=== PATIENT | female | born 1935 | race Caucasian/White ===

== ENCOUNTER 2016-05-09 03:04 | Inpatient (IN) | payer OTHER, MEDICARE ==
[~2016-05-09] VITALS: Ht 152.4 cm; Wt 95.3 kg
[~2016-05-09 03:04] MED LIST: AMOXICILLIN500 M2 PO; ASPIRIN EC325 M2 PO; COLACE100 M1 PO; COMBIGAN EYE DRO5 ML OP; DILAUDID2 M1 PO; LUMIGAN2.5 ML OPH; MIRALAX17 G1 PO; NORVASC10 M1 PO; PATADAY2.5 ML OP; PRED FORTE1 ML OD; RED YEAST RICE600 MG PO; TENORMIN50 M1 PO; TRICOR145 M1 PO; ULTRAM50 M1 PO; VALTREX500 M1 PO
[2016-05-09] MEDS ORDERED: TENORMIN50 M1 PO (11:53)
[2016-05-09] MEDS ORDERED: PATADAY2.5 ML OU (11:54)
[2016-05-09] MEDS ORDERED: COMBIGAN EYE DRO5 ML OD (11:55)
[2016-05-09] MEDS ORDERED: LUMIGAN2.5 ML OU (11:56)
--- NOTE | 2016-05-09 11:56 | Admission Core Measures ---
Admission Meds I reviewed the following Meds: Current Medications Sig/Aren Start time Last Medication Dose Stop Time Status Admin Acetaminophen 975 MG ONCE 05/09 0000 NR (Tylenol) 05/09 2358 Cefazolin Sodium 2,000 MG ONCE 05/09 NR (Kefzol-Ancef Inj) 05/09 2358 Oxycodone HCl 10 MG ONCE 05/09 0000 NR (Roxicodone) 05/09 2358 Acute Coronary Syndrome Inclusion Criteria ACS Diagnosis No Inpatient Core Measures LDL Reminder: If No, please order W/I first 24hr of stay Congestive Heart Failure Inclusion Criteria CHF Diagnosis No Cerebrovascular accident Inclusion Criteria CVA/TIA Diagnosis No Inpatient Core Measures Bedside Swallow Eval Reminder: If BSE failed, place ST order Antithrombotic Reminder: Order Antithrombotic Medication by end of day 2 Antithrombotic Reminder: Document Reason Antithrombotic Not ordered by end of day 2 AFIB/Flutter Reminder: If Present, add to problem list AFIB/Flutter Reminder: Order Anticoag Medication for pts with AFIB/Flutter Atherosclerosis Reminder: If Present, add to problem list LDL Reminder: If No, please order W/I first 24hr of stay PT Order Reminder: If No, please order Venous thromboembolism Inpatient Core Measures VTE Risk Factors: Age > 40, Obesity, Surgery VTE Prophylaxis Ordered Inpt Mech & Pharm No Mech VTE prophylaxis d/t No contraindications No VTE Pharm Prophylaxis d/t No contraindications Inclusion Criteria - Per Current guidelines, there needs to be overlap - treatment for the first 5 days of Warfarin therapy. - Parenteral Anticoagulation (IV or SC) needs to be - given along with Warfarin therapy. VTE Diagnosis No VTE Type NONE VTE Confirmed by (Test) NONE Problem List As ranked by this Provider includes Assessment & Plan 1. Status post total hip replacement, left HOME MEDS Home Med List Amlodipine Besylate (Norvasc) 10 MG TABLET 1 TAB PO DAILY BP/HEART (Reported) Aspirin (Ecotrin*) 81 MG TABLET.DR 1 TAB PO DAILY HEART/BLOOD (Reported) Atenolol (Tenormin) 50 MG TABLET 1 TAB PO DAILY BP (Reported) Docusate Sodium (Colace) 100 MG CAPSULE 1 CAP PO BID CONSTIPATION Fenofibrate Nanocrystallized (Tricor) 145 MG TABLET 1 TAB PO DAILY CHOLESTEROL /TRIGLYCERIDES (Reported) Olopatadine HCl (Pataday) 0.2 % DROPS 1 GTT OU DAILY UNKNOWN (Reported) Prednisolone Acetate (Pred Forte) 1 ML DROPS.SUSP 1 DROP OD DAILY GLAUCOMA ( Reported) Valacyclovir Hydrochloride (Valtrex) 500 MG TABLET 1 TAB PO BID ANTIVIRAL ( Reported)
[2016-05-09] MEDS ORDERED: MIRALAX17 G1 PO (12:20)
[2016-05-09] MEDS ORDERED: PERCOCET 5-3251 EACH PO (12:21)
--- NOTE | 2016-05-09 12:32 | Patient Discharge Instructions ---
Discharge Instructions General Discharge Information You were seen/treated for: Left hip degenerative joint disease You had these procedures: Left total hip arthroplasty Watch for these problems: Significantly increased pain or difficulty ambulating Signs and symptoms of infection No bath, but you may shower: Yes Other wound care: Daily dry dressing change to surgical site Special Instructions: See information sheet Remove surgical clips on postoperative day #14 and reinforced with Steri-Strips Take aspirin 325 mg by mouth twice a day for 28 days Diet Continue normal diet: Yes Activity Activity Self Limited: Yes Other activity limits: Ambulate per physical therapy recommendations Acute Coronary Syndrome Inclusion Criteria At DC or during hospital stay patient has or had the following: ACS DIAGNOSIS No Discharge Core Measures Meds if any: Prescribed or Continued at Discharge Meds if any: NOT Prescribed or Continued at Discharge Congestive Heart Failure Inclusion Criteria At DC or during hospital stay patient has or had the following: CHF DIAGNOSIS No Discharge Core Measures Meds if any: Prescribed or Continued at Discharge Meds if any: NOT Prescribed or Continued at Discharge Cerebrovascular accident Inclusion Criteria At DC or during hospital stay patient has or had the following: CVA/TIA Diagnosis No Discharge Core Measures Meds if any: Prescribed or Continued at Discharge Meds if any: NOT Prescribed or Continued at Discharge Venous thromboembolism Inclusion Criteria VTE Diagnosis No VTE Type NONE VTE Confirmed by (Test) NONE Discharge Core Measures - Per Current guidelines, there needs to be overlap - treatment for the first 5 days of Warfarin therapy. - If discharged on Warfarin prior to 5 days of - overlap therapy, the patient will need to be - assessed for post discharge needs including - *Post discharge parental anticoagulation - *Warfarin and/or parental anticoagulation education - *Follow up date to check INR post discharge At least 5 days overlap therapy as Inpatient No Meds if any: Prescribed or Continued at Discharge Note: Overlap Therapy is Warfarin and Anticoagulant Meds if any: NOT Prescribed or Continued at Discharge
--- NOTE | 2016-05-09 12:36 | Surgical Discharge Summary ---
See Addendum Visit Information Visit Dates Admission Date: 05/09/16 Discharge Date: 05/13/16 History of Present Illness Chief Complaint: See admitting H&P Medical History Neurological: NONE EENT: NONE Cardiovascular: hypertension Respiratory: asthma Gastrointestinal: NONE Hepatic: NONE Renal: NONE Musculoskeletal: osteoarthritis Psychiatric: NONE Endocrine: NONE Blood Disorders: NONE Cancer(s): NONE [employer]/Reproductive: NONE History of MRSA: No History of VRE: No History of CDIFF: No Pneumonia Vaccine: 04/10/14 Surgical History Pertinent Surgical History: IVC FILTER WERNER KNEE REPLACEMENT HYSTERECTOMY CHOLEY CORNEAL TRANSPLANT Psychosocial History Who Do You Live With? Daughter What is Your Primary Language? Colombian Review of Systems: See admitting H&P Hospital Course Course Attending Physician: JOSE BACON MD Primary Care Physician: NAHOMI RIVERA,[facility] Course: The patient was admitted on 05/09/2016. She was brought to the operating theater and underwent a left total hip arthroplasty. Postoperative the patient progressed as expected, she worked adequately with physical therapy, and her pain was under adequate control. She was started on aspirin and her laboratory studies/vital signs were stable. The patient was discharged on postoperative day #3 with an uneventful hospital course. She did not want to take any pain medication stronger than percocet as her previous post op course ended with severe, painful constipation. She refused any ms contin or dilaudid. Her pain was well controlled on percocet/ES tylenol, therefore that was ordered at discharge along with a bowel regimen. Complications: None Allergies: Coded Allergies: hydrochlorothiazide (FEVER, DECREASED BP, SOB 11/20/15) Sulfa (Sulfonamide Antibiotics) (FEVER, DECREASED BP 11/23/15) Disposition Summary Disposition Principal Diagnosis: Left hip degenerative joint disease Additional Diagnosis: Morbid obesity Discharge Disposition: SNF Discharge Instructions General Discharge Information Code Status: Full Code Patient's Diet: Heart healthy diet Patient's Activity: Weightbearing as tolerated and per physical therapy recommendations Follow-Up Instructions/Appts: See attached discharge instructions The patient should be seen by Dr. Bacon in the office in approximately 6 weeks Medications at Discharge Discharge Medications: Stop taking the following medications: Aspirin (Ecotrin*) 81 MG TABLET. ORAL DAILY Continue taking these medications: Amlodipine Besylate (Norvasc) 10 MG TABLET 1 Tablet ORAL DAILY Comments: Last Taken: 05/12/16 Time: 932 Fenofibrate Nanocrystallized (Tricor) 145 MG TABLET 1 Tablet ORAL DAILY Comments: Last Taken: 04/11/16 Time: 930 Prednisolone Acetate (Pred Forte) 1 ML DROPS.SUSP 1 DROP Right Eye DAILY Comments: Last Taken: 05/12/16 Time: 933 Docusate Sodium (Colace) 100 MG CAPSULE 1 Capsule ORAL TWICE DAILY Qty = 14 Comments: Last Taken: 04/11/16 Time: 930 Atenolol (Tenormin) 50 MG TABLET 1 Tablet ORAL DAILY Comments: Last Taken: 05/12/16 Time: 930 Olopatadine HCl (Pataday) 0.2 % DROPS 1 Drop Both Eyes DAILY Comments: Last Taken: NOT GIVEN AT HOSPITAL Time: Brimonidine Tartrate/Timolol (Combigan Eye Drops) 0.2 %-0.5 % DROPS 1 Drop Right Eye TWICE DAILY Comments: Last Taken: 04/11/16 Time: 933 Bimatoprost (Lumigan) 0.01 % DROPS 1 Drop Both Eyes Every night Comments: Last Taken: NOT GIVEN AT HOSPITAL Time: Valacyclovir HCl (Valacyclovir) 500 MG TABLET 1 Tablet ORAL TWICE DAILY Comments: Last Taken: 05/12/16 Time: 929 Start taking the following new medications: Aspirin (Aspirin*) 325 MG TABLET 325 Milligram ORAL TWICE DAILY as needed for blood thinner Qty = 1 No Refills Instructions: take for 28 days Comments: Last Taken: 05/12/16 Time: 933 Polyethylene Glycol 3350 (Miralax) 17 GRAM POWD.PACK 1 Packet ORAL DAILY Qty = 1 No Refills Instructions: dissolve in water Oxycodone HCl/Acetaminophen (Percocet 5-325 MG Tablet) 5 MG-325 MG TABLET 1-2 Tablet ORAL EVERY 4 HOURS NEEDED as needed for PAIN Qty = 1 No Refills Acetaminophen (Tylenol Extra Strength) 500 MG TABLET 1 Tablet ORAL EVERY 4 HOURS NEEDED as needed for mild pain Qty = 1 No Refills Instructions: Take if needed instead of percocet, not to exceed maximum acetaminophen dose of 3000mg in 24 hours
--- NOTE | 2016-05-09 14:24 | RADIOLOGY REPORT ---
EXAMINATION: XR HIP, LEFT CLINICAL INFORMATION: Status post left total hip arthroplasty. COMPARISON: Right-sided films 11/23/2015. TECHNIQUE: Two views of the left hip. FINDINGS: Immediate postoperative films demonstrate post total hip arthroplasty changes which appear in satisfactory position with a small amount of air in the soft tissues without evidence of an immediate complication. IMPRESSION: Postoperative changes left hip.
--- NOTE | 2016-05-09 14:43 | Operative Report ---
Operative/Inv Procedure Report Surgery Date: 05/09/16 Name of Procedure: Left total hip replacement Pre-Operative Diagnosis: Primary left hip DJD Post-Operative Diagnosis: Same Estimated Blood Loss: 250 Surgeon/Continuum Of Care Manager: JORDI RIVERA,JOSE Gaines Anesthesia: block Operative/Procedure Note Note: Description of Procedure: The patient was taken to the operating room and positively identified. After induction of spinal anesthesia and administration of appropriate pre-operative antibiotics, the patient was positioned supine on the operating room table and all bony prominences were well padded. After performing a surgical timeout, the left lower extremity was prepped and draped in the usual sterile fashion. A direct anterior approach was made to the left hip. The incision was carried sharply through superficial soft tissues to the level of the fascia. Meticulous hemostasis was maintained with Bovie electocautery. The fascia over the tensor fascia kandace muscle was opened sharply and the interval between the TFL and the sartorius was entered bluntly taking care to stay lateral to the lateral femoral cutaneous nerve. Retractors were placed around the femoral neck and the pericapsular fat was identified. The ascending branches of the lateral femoral circumflex vessels were identified and carefully coagulated. The pericapsular fat and anterior capsule were then resected. A napkin ring osteotomy was performed and the femoral head was removed without difficulty. Attention was then turned to the acetabulum. After appropriate placement of retractors, the acetabulum was exposed. Soft tissue was cleaned from the acetabular margin and notch. Overhanging osteophytes were removed and the teardrop was exposed. The acetabulum was then sequentially reamed to accept a 54 mm [place] Tritanium hemispherical solid back shell. This was impacted into place in the appropriate position and fitted with a 36 mm Trident X3 zero degree polyethylene insert. Attention was then turned to the femur. After performing the appropriate ligament releases, the proximal femur was exposed. It was then sequentially broached to accept a size 4 [place] accolade 2 stem. This was trialed for leg length and stability. The trial component was removed and the final component was impacted into place. The trunnion was carefully cleaned and fit with a 36 mm, -2.5 Biolox delta ceramic femoral head. The hip was reduced and put through a full range of motion and found to be stable. The articular space was then irrigated with sterile saline. The periarticular soft tissues were infilitrated with Marcaine. The fascial layer was closed with interrupted #1 vicryl suture and the skin was re-approximated with interrupted 2 -0 vicryl. The skin was closed with a running 3-0 V-Lock suture. Steri-strips and a sterile dressing were applied. The patient was awakened and taken to the recovery room in satisfactory condition.
[2016-05-09 16:00] VITALS: BP 152/62
--- NOTE | 2016-05-09 16:35 | PN- Orthopedic ---
Subjective Subjective: POC S/P LEFT MICHEAL NO COMPLAINTS AMBULATING IN ROOM AND WITH PT DENIES CP, SOB, NO N+V WITH DIET Objective Vital Signs and I&Os VSS Physical Exam: CV: RRR LUNGS: CLEAR ABD: +BS, SOFT EXT: LEFT LE, DISTAL CMS INTACT DRSG DRY THIGH SOFT Assessment/Plan Assessment/Plan ORTHO STABLE PLAN CONT OOB WITH PT ASA FOR DVT PROPHYLAXIS - NO COUMDIN SNF PLANNING Core Measures/Miscellaneous Venous Thromboembolism VTE Risk Factors: Age > 40, Surgery VTE Contraindications: No Contraindications VTE Prophylaxis Ordered Inpt: Mech & Pharm VTE Diagnosis: No VTE Type: NONE VTE Confirmed by (Test): NONE Beta Juan Pablo Is Beta Juan Pablo a Home Med? Yes Antibiotics Is Patient on Antibiotics? Yes
[2016-05-09] MEDS ORDERED: ASPIRIN325 M2 PO (16:52)
[2016-05-09 18:00] VITALS: BP 144/80
[2016-05-09 20:11] VITALS: BP 132/66
[2016-05-09 22:55] VITALS: BP 144/70
[2016-05-10 02:00] VITALS: BP 130/68
[2016-05-10 06:58] VITALS: BP 118/60
[2016-05-10 09:07] LABS: ABSOLUTE BASOPHIL COUNT 0 /CUMM (0.0-0.2); ABSOLUTE EOSINOPHIL COUNT 0 /CUMM (0.0-0.7); ABSOLUTE GRANULOCYTE CT 4.3 /CUMM (1.4-6.5); ABSOLUTE LYMPH COUNT 1.2 /CUMM (1.2-3.4); ABSOLUTE MONOCYTE COUNT 0.4 /CUMM (0.10-0.60); BASOPHIL % 0.3 % (0.0-2.0); EOSINOPHIL % 0.4 % (0-5); GRANULOCYTE % 71.5 % (42.2-75.2); MEAN CORPUSCULAR HGB 30.5 PG (27.0-31.0); MEAN CORPUSCULAR HGB CONC 33.3 G/DL (33.0-37.0); MEAN CORPUSCULAR VOLUME 91.6 FL (81.0-99.0); MEAN PLATELET VOLUME 8.9 FL (7.4-10.4); PLATELET COUNT 151 /CUMM (130-400); RED BLOOD CELL CT 3.83 /CUMM (4.20-5.40); WHITE BLOOD CELL COUNT 6.1 /CUMM (4.8-10.8)
[2016-05-10 09:24] LABS: PT 11.7 SEC (9.4-12.5)
--- NOTE | 2016-05-10 11:26 | PN- Orthopedic ---
Subjective Subjective: NAEO. Patient without new c/o. Pain controlled. Denies numbness/tingling. Tolerating diet without n/v. Has not ambulated with PT but has ambulated to bathroom with assist and rolling walker. Denies CP/SOB. Objective Vital Signs and I&Os Vital Signs Date Time Temp Pulse Resp B/P Pulse O2 O2 Flow FiO2 Ox Delivery Rate 05/10 0847 97.6 50 18 132/58 05/10 0658 97.6 50 18 118/60 97 Room Air 05/10 0200 98.0 50 18 130/68 97 Room Air 05/09 2255 97.9 63 20 144/70 97 Room Air 05/09 2010 97.3 61 18 132/66 92 Room Air 05/09 1800 98.0 64 20 144/80 96 Room Air 05/09 1700 Room Air Room Air 05/09 1600 97.9 68 20 152/62 97 Nasal 2.0L Cannula 05/09 1520 97 Nasal 2.0L Cannula Intake & Output 05/10 1600 05/10 0800 05/10 0000 05/09 1600 05/09 0800 05/09 0000 Intake Total 650 55 Output Total 725 1000 500 Balance -75 -945 -500 Intake, IV 600 55 Intake, Oral 50 Number 0 Bowel Movements Output, Urine 725 1000 500 Patient 210 lb Weight Physical Exam: General: NAD, comfortable, A&Ox3 Chest: CTAB. RRR. Abdomen: soft, nontender, nondistended. Ext: Left hip dressing c/d/i. Left thigh swollen but compartments soft. No calve swelling/TTP, neurovascularly intact bilateral lower extremities Current Medications: Current Medications Sig/Aren Start time Last Medication Dose Route Stop Time Status Admin Acetaminophen 975 MG ONCE 05/09 0000 DC PO 05/09 2359 Amlodipine Besylate 10 MG DAILY 05/10 1000 AC 05/10 PO 0847 Aspirin 325 MG BID 05/09 2199 AC 05/10 PO 0847 Atenolol 50 MG DAILY 05/10 1000 AC 05/10 PO 0847 Brimonidine Tartrate 1 GTT BID 05/09 2199 AC 05/10 OPH 0856 Cefazolin Sodium 1,000 MG IQ8 05/09 1600 DC 05/10 IV 05/10 0001 0102 Cefazolin Sodium 2,000 MG ONCE 05/09 0000 DC IV 05/09 2359 Dextrose/Sodium 1,000 ML .[id number] 05/09 1545 AC 05/10 Chloride IV 0500 Docusate Sodium 100 MG BID 05/09 2200 AC 05/10 PO 0847 Fenofibrate 145 MG DAILY 05/10 1000 AC 05/10 PO 0847 Hydromorphone HCl 2 MG Q4P PRN 05/09 1545 AC PO Latanoprost 1 GTT AT BEDTIME 05/09 2200 AC 05/09 OPH 2154 Morphine Sulfate 2 MG Q2P PRN 05/09 1545 AC IV Naphazoline HCl/ 1 GTT DAILY 05/10 1000 AC 05/10 Pheniramine Maleate OPH 0852 Ondansetron HCl 4 MG Q6P PRN 05/09 1545 AC IV Oxycodone HCl 10 MG ONCE 05/09 0000 DC PO 05/09 2359 Oxycodone/ 1 TAB Q4P PRN 05/09 1545 AC 05/10 Acetaminophen PO 0846 Polyethylene Glycol 17 GM DAILY 05/10 1000 AC 05/10 PO 0847 Prednisolone 1 GTT DAILY 05/10 1000 AC 05/10 OPH 0856 Promethazine HCl 12.5 MG Q6P PRN 05/09 1545 AC IV 05/16 1159 Timolol Maleate 1 GTT BID 05/09 2200 AC 05/10 OPH 0855 Warfarin Sodium 5 MG COUMADIN 1700 ONE 05/09 1700 CAN PO 05/09 1701 Results Last 48 Hours of Labs: Laboratory Tests 05/10 0630 Chemistry Sodium (137 - 145 mmol/L) 138 Potassium (3.5 - 5.1 mmol/L) 3.8 Chloride (98 - 107 mmol/L) 105 Carbon Dioxide (22 - 30 mmol/L) 26 Anion Gap (5 - 16) 6 BUN (7 - 17 mg/dL) 16 Creatinine (0.5 - 1.0 mg/dL) 0.7 Estimated GFR (>60 ml/min) > 60 BUN/Creatinine Ratio (7 - 25 %) 22.9 Coagulation PT (9.4 - 12.5 SEC) 11.7 INR (0.90 - 1.19) 1.12 Hematology CBC w Diff NO MAN DIFF REQ WBC (4.8 - 10.8 /CUMM) 6.1 RBC (4.20 - 5.40 /CUMM) 3.83 L Hgb (12.0 - 16.0 G/DL) 11.7 L Hct (37 - 47 %) 35.0 L MCV (81.0 - 99.0 FL) 91.6 MCH (27.0 - 31.0 PG) 30.5 RDW (11.5 - 14.5 %) 15.0 H Plt Count (130 - 400 /CUMM) 151 MPV (7.4 - 10.4 FL) 8.9 Gran % (42.2 - 75.2 %) 71.5 Lymphocytes % (20.5 - 51.1 %) 20.5 Monocytes % (1.7 - 9.3 %) 7.3 Eosinophils % (0 - 5 %) 0.4 Basophils % (0.0 - 2.0 %) 0.3 Absolute Granulocytes (1.4 - 6.5 /CUMM) 4.3 Absolute Lymphocytes (1.2 - 3.4 /CUMM) 1.2 Absolute Monocytes (0.10 - 0.60 /CUMM) 0.4 Absolute Eosinophils (0.0 - 0.7 /CUMM) 0 Absolute Basophils (0.0 - 0.2 /CUMM) 0 PUBS MCHC (33.0 - 37.0 G/DL) 33.3 Assessment/Plan Assessment/Plan 81yo F POD#1 s/p left MICHEAL. AVSS, patient stable. - pain control - PRN zofran - asa 325mg PO BID - abx complete - dc ivf - oob and ambulate with PT, wbat - ALPS - diet as tolerated - i/o's - plan for STR - will d/w attending Core Measures/Miscellaneous Venous Thromboembolism VTE Risk Factors: Age > 40, Surgery VTE Contraindications: No Contraindications VTE Prophylaxis Ordered Inpt: Mech & Pharm VTE Diagnosis: No VTE Type: NONE VTE Confirmed by (Test): NONE Beta Juan Pablo Is Beta Juan Pablo a Home Med? Yes Antibiotics Is Patient on Antibiotics? No
[2016-05-10 14:18] VITALS: BP 116/70
[2016-05-10 21:30] VITALS: BP 110/58
[2016-05-11 05:49] VITALS: BP 124/54
--- NOTE | 2016-05-11 06:52 | PN- Orthopedic ---
Subjective Subjective: POC S/P LEFT MICHEAL NO MAJOR COMPLAINTS DENEIS CP, SOB, NO N+V WITH DIET Objective Vital Signs and I&Os Vital Signs Date Time Temp Pulse Resp B/P Pulse O2 O2 Flow FiO2 Ox Delivery Rate 05/11 0549 99.5 77 20 124/54 94 Room Air 05/10 2130 98.8 64 20 110/58 96 Room Air 05/10 1418 98.0 55 18 116/70 96 Room Air 05/10 1134 Room Air Room Air 05/10 0847 97.6 50 18 132/58 05/10 0658 97.6 50 18 118/60 97 Room Air Intake & Output 05/11 0800 05/11 0000 05/10 1600 05/10 0800 05/10 0000 05/09 1600 Intake Total 400 1005 650 55 Output Total 300 900 879 366 4748 500 Balance -300 -500 605 -75 -945 -500 Intake, IV 525 600 55 Intake, Oral 400 480 50 Number 0 0 Bowel Movements Output, Urine 300 900 142 476 8464 500 Patient 210 lb Weight Physical Exam: CV; RRR LUNGS: CLEAR ABD: SOFT, +BS EXT: DRSG CHANGED, WOUND C/D/I NO CALF TENDERNESS TO PALP DISTAL CMS INTACT Assessment/Plan Assessment/Plan ORTHO STABLE PLAN ASA FOR DVT PROPHYLAXIS OOB WITH PT/STAIRS PLAN FOR SNF TOMORROW Core Measures/Miscellaneous Venous Thromboembolism VTE Risk Factors: Age > 40, Surgery VTE Contraindications: No Contraindications VTE Prophylaxis Ordered Inpt: Mech & Pharm VTE Diagnosis: No VTE Type: NONE VTE Confirmed by (Test): NONE Beta Juan Pablo Is Beta Juan Pablo a Home Med? Yes Antibiotics Is Patient on Antibiotics? No
[2016-05-11] MEDS ORDERED: VALACYCLOVIR500 M1 PO (10:09)
[2016-05-11 14:18] VITALS: BP 125/60
[2016-05-11 21:23] VITALS: BP 130/60
[2016-05-12 06:54] VITALS: BP 130/64
[2016-05-12] MEDS ORDERED: TYLENOL EXTRA500 M2 PO (07:59)
[2016-05-12 12:12] VITALS: BP 124/58
--- NOTE | 2016-05-12 13:36 | Event Note ---
Event Note Event Note: Rapid response was called at 1:00 pm, Patient felt lightheaded, found to be tachycardic in 117 and hypotensive BP:70/40mmgh doppler Kristine background: She is an 81 yo women with PMHx significant for HTN, PE admitted for total hip replacement, she already had the procedure at 05/09/2016. Patient was supposed to leave to [facility] today. On Arrival: Patient was setting on the chair, she was awake, alert, oriented. She report feeling lightheaded, nauseous, denies chest pain, no headache, no pain, no weakness. Chest:Clear CVS:Regular, S1 S2, Tachycardic Abdomen:Soft, nontender, +ve bowel sound. LE:Trace edema B/L She has had similar episode few times before but she stated her BP comes up on it's own. Plan: Lightheaded in patient who had recent hip replacement, which could be related to dehydration, a bolus of IV fluid was ordered, but patient hard to have IV access , we encouraged oral hydration. CBC, BEP, Mg, Po4, EKG and Troponin stat was ordered. EKG: Regular rhythm, rate: 114, Reviewed which shows SVT vs Afib, Lt.Aix deviation. Surgical PA was informed to consider cardiology consult.
[2016-05-12 14:11] LABS: ABSOLUTE BASOPHIL COUNT 0 /CUMM (0.0-0.2); ABSOLUTE EOSINOPHIL COUNT 0.2 /CUMM (0.0-0.7); ABSOLUTE GRANULOCYTE CT 4.4 /CUMM (1.4-6.5); ABSOLUTE LYMPH COUNT 1.1 /CUMM (1.2-3.4); ABSOLUTE MONOCYTE COUNT 0.3 /CUMM (0.10-0.60); BASOPHIL % 0.8 % (0.0-2.0); GRANULOCYTE % 72.8 % (42.2-75.2); HEMATOCRIT 39.2 % (37-47); MEAN CORPUSCULAR HGB 30.8 PG (27.0-31.0); MEAN CORPUSCULAR HGB CONC 33.9 G/DL (33.0-37.0); MEAN CORPUSCULAR VOLUME 90.9 FL (81.0-99.0); MEAN PLATELET VOLUME 8.5 FL (7.4-10.4); PLATELET COUNT 176 /CUMM (130-400); RBC DISTRIBUTION WIDTH 14.8 % (11.5-14.5); RED BLOOD CELL CT 4.31 /CUMM (4.20-5.40)
[2016-05-12 14:31] VITALS: BP 110/52
--- NOTE | 2016-05-12 15:39 | PN- Orthopedic ---
See Addendum Subjective Subjective: Pt seen earlier today, oob in chair, feeling good, only took percocet last night at 1130pm, none overnight. Pain well controlled, tolerating diet, ambulating with PT with rolling walker. Plan is to dc to str today Objective Vital Signs and I&Os Vital Signs Date Time Temp Pulse Resp B/P Pulse O2 O2 Flow FiO2 Ox Delivery Rate 05/12 1431 98.4 69 20 110/52 96 05/12 1212 99.2 62 20 124/58 05/12 0933 62 124/58 05/12 0654 99.2 66 20 130/64 94 Room Air 05/11 2237 99.6 05/11 2123 99.9 68 20 130/60 96 Room Air Intake & Output 05/12 1600 05/12 0800 05/12 0000 05/11 1600 05/11 0800 05/11 0000 Intake Total 150 450 560 50 400 Output Total 500 200 950 500 900 Balance -350 250 -390 -450 -500 Intake, IV 0 Intake, Oral 150 450 560 50 400 Number 0 Bowel Movements Output, Urine 500 200 950 500 900 Physical Exam: tmax 99.0 all other vitals stable General: alert and oriented times three Chest: clear anteriorly bilaterally, RRR Abd: soft, good bs Ext: warm, no edema, positive sensate, no calf tenderness Wound: dressing changed, wound is clean and dry Assessment/Plan Assessment/Plan 81 yo female s/p L MICHEAL Plan to dc to str asa 325mg po bid for dvt ppx Later in the day, pt had an episode of feeling lightheaded. Her systolic bp at the time was noted to be 77. Called by nursing, pt immediately spontaneously recovered and bp 114, HR 80's, Sats good on room air. She remained coherent. She states that her bp drops on occasion at home and she monitors it herself. Medical team came to bedside and EKG ordered, labs performed including troponin which are all normal. EKG being read by cardiology as it appears to be svt vs a fib. Will dc to str if ok with medical team. Dr Gomez notified. Core Measures/Miscellaneous Venous Thromboembolism VTE Risk Factors: Age > 40, Surgery VTE Contraindications: No Contraindications VTE Prophylaxis Ordered Inpt: Mech & Pharm VTE Diagnosis: No VTE Type: NONE VTE Confirmed by (Test): NONE Beta Juan Pablo Is Beta Juan Pablo a Home Med? Yes Antibiotics Is Patient on Antibiotics? No
[2016-05-12 22:31] VITALS: BP 122/64
[2016-05-13 06:29] VITALS: BP 120/60
--- NOTE | 2016-05-13 09:25 | PN- Orthopedic ---
Subjective Subjective: pod#4 s/p left adriano no c/o dizziness, cp, sob, no n+v ambulating without difficult Objective Vital Signs and I&Os Vital Signs Date Time Temp Pulse Resp B/P Pulse O2 O2 Flow FiO2 Ox Delivery Rate / 0629 97.6 56 20 120/60 96 Room Air / 2231 98.8 63 20 122/64 95 Room Air / 1431 98.4 69 20 110/52 96 05/12 1212 99.2 62 20 124/58 05/12 0933 62 124/58 Intake & Output 02/ 1600 02/ 0800 05/13 0000 05/12 1600 05/12 0800 05/12 0000 Intake Total 150 350 150 450 Output Total 1125 600 600 500 200 Balance -975 -250 -600 -350 250 Intake, Oral 150 350 150 450 Number 0 Bowel Movements Output, Urine 1125 600 600 500 200 Physical Exam: cv: rrr lungs: clear abd: soft, +bs ext: no calf tenderness bilat wound c/d/i distal cms intact Assessment/Plan Assessment/Plan stable plan snf today f/u dr manriquez Core Measures/Miscellaneous Venous Thromboembolism VTE Risk Factors: Age > 40, Surgery VTE Contraindications: No Contraindications VTE Prophylaxis Ordered Inpt: Mech & Pharm VTE Diagnosis: No VTE Type: NONE VTE Confirmed by (Test): NONE Beta Juan Pablo Is Beta Juan Pablo a Home Med? Yes Antibiotics Is Patient on Antibiotics? No
[2016-05-13 10:01] VITALS: BP 128/68
[2016-05-13] MEDS ORDERED: ASPIRIN EC81 M1 PO (11:01)
== END 2016-05-13 12:04 | DRG 470 ==
LOC: ENRESERVDT → ENRESERVTM → SDA 03:04 → 2NA 03:04 → ENPENDDIS 03:04 → DELPENDDIS 03:04 → SDA 07:00 → 2NA 15:33
PROVIDERS: Physician Assistant Surgical; Student in an Organized Health Care Education/Training Program; ADMIT Orthopaedic Surgery
PROC: 0SRB04A Replacement of Left Hip Joint with Ceramic on Polyethylene Synthetic Substitute, Uncemented, Open Approach (ICD-10-PCS; principal; 2016-05-09)
DX: M16.12 Unilateral primary osteoarthritis, left hip (principal); I95.9 Hypotension, unspecified; Z68.41 Body mass index [BMI] 40.0-44.9, adult; E86.0 Dehydration; E66.9 Obesity, unspecified; I10 Essential (primary) hypertension; R55 Syncope and collapse; J45.909 Unspecified asthma, uncomplicated; H40.9 Unspecified glaucoma; I44.0 Atrioventricular block, first degree; Z86.711 Personal history of pulmonary embolism; Z86.718 Personal history of other venous thrombosis and embolism
CPT/HCPCS: 2NAP; 73502-LT; 82436; 88304; 93005; 93010; 97110-GO; 97112-GO; 97116-GO; 97161-GP; 97530-GO; J0690; J0735; J2405; J2550; J3490; J7042